=== PATIENT | female | born 1990 | race Caucasian/White ===

== ENCOUNTER 2017-07-20 20:33 | Emergency (ER) | payer BC ==
[2017-07-20 20:41] VITALS: TEMP 98; BMI 25.6
--- NOTE | 2017-07-20 20:45 | PDOC ---
History of Present Illness - General History Source: Patient, Parent(s), Family Exam Limitations: No Limitations <Dominik Mosquera - Last Filed: 07/20/17 21:02> - General History Source: Patient Exam Limitations: No Limitations <RomeoniraliJhony Krueger I - Last Filed: 07/20/17 21:54> - General Chief Complaint: Chest Pain Stated Complaint: neck pain,chestpain Time Seen by Provider: 07/20/17 20:37 - History of Present Illness Initial Comments: 07/20/17 20:57 The patient is a 26 year old female, with a significant past medical history of several bulging disk, and right/left hip surgeries, who presents to the emergency department complaining of diffuse neck pain and palpitations s/p anxiety attack for approx. one day. The patient reports she was laying down at home last night when she began having neck pain followed by an anxiety attack and palpitations. The patient reports she is seeing a pain management doctor and takes 10 mg Percocet for pain with her last oral intake last night. She denies chest pain or shortness of breath. She denies diaphoresis, headache, lightheadedness or blurry vision. She denies numbness, tingling or loss of sensation. Primary Care Physician: Dr. Lorin Garcia PAST MEDICAL HISTORY: Patient reports she has several bulging disk and prior hip surgeries in both hips. PAST SURGICAL HISTORY: Prior hip surgeries in both hips. FAMILY HISTORY: no pertinent history SOCIAL HISTORY: Pt lives with family and is employed. MEDICATIONS: reviewed ALLERGIES: As per nursing notes ROS CardioVascular: +Palpitations. No chest pain or shortness of breath Respiratory: No cough, or wheezing. Gastrointestinal: no nausea, vomiting, diarrhea or constipation, Musculoskeletal: +Neck pain. Neurologic: No headache, vertigo, dizziness or loss of consciousness Psychiatric: nor depression Skin: No rashes or easy bruising All other systems reviewed and normal P/E GENERAL: +Anxious. The patient is awake, alert, and fully oriented HEAD: Normal with no signs of trauma. EYES: Pupils equal, round and reactive to light, extraocular movements intact, sclera anicteric, conjunctiva clear. NECK: +Tenderness and spasm with palpation to the right lateral neck. No cervical spine tenderness Cardiac: S1-S2 normal, regular rate and rhythm, no murmurs rubs or gallops Respiratory: Lungs clear to auscultation bilateral EXTREMITIES: Normal range of motion, no edema. NEUROLOGICAL: Normal speech, normal gait. PSYCH: Normal mood, normal affect. SKIN: Warm, Dry, normal turgor, no rashes or lesions noted. (Dominik Mosquera) 07/20/17 21:51 A portion of this note was documented by scribe services under my direction. I have reviewed the details of the note, within reason, and agree with the documentation. The case summary and management plan written by me. This is a 26-year-old female who comes in complaining of neck pain back pain and headache. Patient has a long history of chronic pain. Patient has a pain specialist who manages her pain on review of the [facility] prescription monitoring program patient sees her pain specialist on a regular basis and gets prescriptions for Percocet on a monthly basis. Patient also has recently gotten several prescriptions for Dilaudid for her breakthrough pain. Patient said she ran out of her Percocet and is having an anxiety/panic attack. Patient has an appointment with her pain specialist for tomorrow. I gave patient a Percocet here in the emergency room as well as some Xanax and a prescription for a few Percocet and Xanax to get her through until she sees her pain specialist. Patient was discharged home with her mother. (Jhony Lan I) Past History <Dominik Mosquera - Last Filed: 07/20/17 21:02> - Past Medical History Asthma: No Diabetes: No GI Disorders: Yes (ULCER) - Surgical History Orthopedic Surgery: Yes (right knee dislocation with repair) - Suicide/Smoking/Psychosocial Hx Smoking History: Never smoked Hx Alcohol Use: No Substance Use Type: None <Jhony Lan I - Last Filed: 07/20/17 21:54> - Past Medical History Allergies/Adverse Reactions: Allergies Allergy/AdvReac Type Severity Reaction Status Date / Time NSAIDS (Non-Steroidal Allergy Verified 07/20/17 20:46 Anti-Inflamma Home Medications: Ambulatory Orders Oxycodone HCl/Acetaminophen [Percocet 5/325 -] 1 tab PO Q6H PRN #7 tablet Alprazolam [Xanax] 0.5 mg PO DAILY PRN #10 tablet MDD 2 07/20/17 Levetiracetam [Keppra] 250 mg PO BID 07/20/17 Oxycodone HCl/Acetaminophen [Percocet 10-325 mg Tablet] 1 each PO Q6H #10 tablet MDD 6 07/20/17 - Vital Signs Last Vital Signs Temp Pulse Resp BP Pulse Ox 98.0 F 98 H 18 145/94 100 07/20/17 20:37 07/20/17 20:37 07/20/17 20:37 07/20/17 20:37 07/20/17 20:37 - Medications Given in the ED: ED Medications Discontinued Medications Generic Name Dose Route Start Last Admin Trade Name Freq PRN Reason Stop Dose Admin Oxycodone/Acetaminophen 2 combo 07/20/17 20:45 07/20/17 20:52 Percocet 5/325 - PO 07/20/17 20:46 2 combo ONCE ONE Administration *DC/Admit/Observation/Transfer <Dominik Mosquera - Last Filed: 07/20/17 21:02> - Discharge Dispostion Admit: No <Jhony Lan I - Last Filed: 07/20/17 21:54> Diagnosis at time of Disposition: Anxiety - Discharge Dispostion Disposition: HOME - Prescriptions Prescriptions: Oxycodone HCl/Acetaminophen [Percocet 10-325 mg Tablet] 1 each PO Q6H #10 tablet MDD 6 Alprazolam [Xanax] 0.5 mg PO DAILY PRN #10 tablet MDD 2 PRN Reason: Anxiety - Patient Instructions Additional Instructions: For your pain take the Percocet as prescribed/ For anxiety U can take the Xanax 1 tablet a day do not take more than 2 tablets in a 24-hour period. If you continue to have anxiety problems you should follow up with a therapist. See your pain specialist tomorrow for additional Percocet. I have sent a prescription for a few Percocet and Xanax 2 [facility] pharmacy on [facility] that you can get filled tonight to get U through the night. Return to the emergency department immediately with ANY new, persistent or worsening symptoms. Continue any medications as previously prescribed by your physician. You should follow up with your primary doctor as soon as possible regarding today's emergency department visit. . Please make sure your doctor reviews the results of your emergency evaluation. Thank you for coming to the Emergency Department today for your care. It was a pleasure to see you today. Please note that your evaluation is INCOMPLETE until you follow-up with your doctor.
[2017-07-20] MEDS ORDERED: ALPRAZolam 0.25 MG TABLET PO PRN (20:46)
[2017-07-20] MEDS ORDERED: ALPRAZolam 0.25 MG TABLET ONE (20:52)
[2017-07-20 22:06] VITALS: BP 120/70; PULSE 80
== END 2017-07-20 22:08 | disposition home or self-care (01) ==
LOC: FER 20:33
DX: F41.9 Anxiety disorder, unspecified (principal); M50.90 Cervical disc disorder, unspecified, unspecified cervical region
CPT/HCPCS: 99282-25

== ENCOUNTER 2018-05-11 22:15 | Emergency (ER) | payer BC, OTHER ==
--- NOTE | 2018-05-11 22:18 | PDOC ---
History of Present Illness - General History Source: Patient Exam Limitations: No Limitations - History of Present Illness Initial Comments: The patient is a 27 year old female, with a significant PMH of GI ulcers and seizures, who presents to the emergency department complaining of intermittent right knee pain. The patient states she had right knee surgery done for a dislocation but mentions she needs to go back for surgery secondary to michell complication. The patient states right knee pain is accompanied with hip pain, nausea, and anxiety. The patient reports taking 5 tablets of Percocet today and notices no relief. The patient denies chest pain, shortness of breath, headache and dizziness. Denies fever, chills, vomit, diarrhea and constipation. Denies dysuria, frequency, urgency and hematuria. PAST SURGICAL HISTORY : right knee dislocation with repair FAMILY HISTORY: no pertinent history SOCIAL HISTORY: Pt lives with family and is employed. MEDICATIONS: reviewed ALLERGIES: As per nursing notes Adult ROS General: No fevers or chills, no weakness, no weight loss HEENT: No change in vision. No sore throat,. No ear pain CardioVascular: No chest pain or shortness of breath Respiratory:No cough, or wheezing. Gastrointestinal: +Nausea. No diarrhea or constipation, No rectal bleeding Genitourinary: No dysuria, hematuria, or frequency Musculoskeletal: +Right knee pain and hip pain. Neurologic: No headache, vertigo, dizziness or loss of consciousness Psychiatric: nor depression Skin: No rashes or easy bruising Endocrine: no increased thirst or abnormal weight change Allergic: no skin or latex allergy All other systems reviewed and normal Basic PE GENERAL: The patient is awake, alert, and fully oriented, in no acute distress. HEAD: Normal with no signs of trauma. EYES: Pupils equal, round and reactive to light, extraocular movements intact, sclera anicteric, conjunctiva clear. EXTREMITIES: +Right knee, 3 well healed incision with scarring. No increase in warmth. Mild swelling and tenderness to palpation. Decrease ROM secondary to pain. Neurovascular intact NEUROLOGICAL:+ Antalgic gait. Normal speech. PSYCH: Normal mood, normal affect. SKIN: +Mild swelling to right knee pain <Nichelle Ardon - Last Filed: 05/11/18 22:53> - General History Source: Patient Exam Limitations: No Limitations - History of Present Illness Initial Comments: 05/11/18 22:43 A portion of this note was documented by scribe services under my direction. I have reviewed the details of the note, within reason, and agree with the documentation. The case summary and management plan written by me. Assessment and plan this is a 27-year-old female with History of chronic knee pain secondary to some surgery she had a number years ago. Patient comes in with intermittent chronic knee pain. Patient also has some associated nausea for which she was given Zofran with good relief. Patient was also medicated with Dilaudid and patient discharged home. Patient has a pain specialist she follows up with as well as some orthopedist. 05/11/18 22:55 <Jhony Lan I - Last Filed: 05/11/18 22:55> - General Chief Complaint: Pain, Acute Stated Complaint: KNEE PAIN Past History <Nichelle Ardon - Last Filed: 05/11/18 22:53> - Past Medical History Asthma: No Diabetes: No GI Disorders: Yes (ULCER) Seizures: Yes (2016) - Surgical History Orthopedic Surgery: Yes (right knee dislocation with repair) - Suicide/Smoking/Psychosocial Hx Smoking History: Never smoked Hx Alcohol Use: No Drug/Substance Use Hx: No Substance Use Type: None <Jhony Lan I - Last Filed: 05/11/18 22:55> - Past Medical History Allergies/Adverse Reactions: Allergies Allergy/AdvReac Type Severity Reaction Status Date / Time NSAIDS (Non-Steroidal Allergy Verified 05/11/18 22:17 Anti-Inflamma Home Medications: Ambulatory Orders Alprazolam [Xanax] 0.5 mg PO DAILY PRN #10 tablet MDD 2 07/20/17 Levetiracetam [Keppra] 250 mg PO BID 07/20/17 Oxycodone HCl 10 mg PO Q6H PRN #10 tablet MDD 6 07/20/17 Oxycodone HCl/Acetaminophen [Percocet 10-325 mg Tablet] 1 each PO Q6H #10 tablet MDD 6 07/20/17 Ondansetron [Zofran Odt -] 4 mg SL TID #10 od.tablet 05/11/18 Oxycodone HCl/Acetaminophen [Percocet 10-325 mg Tablet] 1 each PO TID 1 Days #3 tablet MDD 3 08/06/18 *Physical Exam - Vital Signs Last Vital Signs Temp Pulse Resp BP Pulse Ox 98.8 F 92 H 18 144/95 100 05/11/18 22:20 05/11/18 22:47 05/11/18 22:20 05/11/18 22:20 05/11/18 22:20 <Nichelle Ardon - Last Filed: 05/11/18 22:53> ED Treatment Course - Medications Given in the ED: ED Medications Discontinued Medications Generic Name Dose Route Start Last Admin Trade Name Mabel PRN Reason Stop Dose Admin Hydromorphone HCl 1 mg 05/11/18 22:27 05/11/18 22:35 Dilaudid Injection - IM 05/11/18 22:28 1 mg ONCE ONE Administration Ondansetron HCl 4 mg 05/11/18 22:26 05/11/18 22:35 Zofran Odt - SL 05/11/18 22:27 4 mg ONCE ONE Administration <Nichelle Ardon - Last Filed: 05/11/18 22:53> *DC/Admit/Observation/Transfer - Attestations Scribe Attestion: 05/11/18 22:50 Documentation prepared by Nichelle Ardon, acting as neuropsychology medical consultant for Emergency Dept,PhysicianMD. <Nichelle Ardon - Last Filed: 05/11/18 22:53> <Jhony Lan I - Last Filed: 05/11/18 22:55> Diagnosis at time of Disposition: Right knee pain Qualifiers: Chronicity: chronic Qualified Code(s): M25.561 - Pain in right knee - Discharge Dispostion Disposition: HOME Condition at time of disposition: Stable - Prescriptions Prescriptions: Ondansetron [Zofran Odt -] 4 mg SL TID #10 od.tablet Oxycodone HCl/Acetaminophen [Percocet 10-325 mg Tablet] 1 each PO TID 1 Days #3 tablet MDD 3 - Patient Instructions Additional Instructions: Continue to take your Percocet as prescribed for the pain. In addition I have sent a prescription to her pharmacy for some nausea medication that you can take as directed if needed for nausea. Get an appointment with your orthopedist for repair of the knee as soon as possible. Return to the emergency department immediately with ANY new, persistent or worsening symptoms. Continue any medications as previously prescribed by your physician. You should follow up with your primary doctor as soon as possible regarding today's emergency department visit. . Please make sure your doctor reviews the results of your emergency evaluation. Thank you for coming to the Emergency Department today for your care. It was a pleasure to see you today. Please note that your evaluation is INCOMPLETE until you follow-up with your doctor.
[2018-05-11 22:24] VITALS: BP 144/95; TEMP 98.8; BMI 26.5
[2018-05-11] MEDS ORDERED: ONDANSETRON *ODT* 4 MG TABLET SL ONE (22:26)
[2018-05-11] MEDS ORDERED: ONDANSETRON *ODT* 4 MG TABLET ONE (22:27)
[2018-05-11] MEDS ORDERED: HYDROmorphone HCL CARPU-JECT 1 MG/1 ML DISP.SYRIN IM ONE (22:27)
[2018-05-11] MEDS ORDERED: ALPRAZolam 1 MG TABLET PO PRN (22:27)
[2018-05-11] MEDS ORDERED: HYDROmorphone HCL CARPU-JECT 1 MG/1 ML DISP.SYRIN ONE (22:28)
[2018-05-11] MEDS ORDERED: ALPRAZolam 0.25 MG TABLET ONE (22:28)
[2018-05-11 22:48] VITALS: PULSE 92
== END 2018-05-11 22:53 | disposition home or self-care (01) ==
LOC: FER 22:15
PROC: 3E023NZ Introduction of Analgesics, Hypnotics, Sedatives into Muscle, Percutaneous Approach (ICD-10-PCS; principal; 2018-05-11)
DX: M25.561 Pain in right knee (principal)
CPT/HCPCS: 99281-25; Q0162